=== PATIENT | male | born 1950 | race Caucasian/White ===

== ENCOUNTER 2018-08-07 21:01 | Emergency (ER) | payer MEDICARE, BC ==
[~2018-08-07] VITALS: Ht 175.3 cm; Wt 91.2 kg
[2018-08-08] MEDS ORDERED: LIDOcaine 2% 10ml TOPICAL JELLY (Urojet) MM ONE (00:25)
[2018-08-08 00:53] VITALS: BP 131/65
== END 2018-08-08 01:00 | disposition home or self-care (01) ==
LOC: ER 21:01
DX: R33.9 Retention of urine, unspecified (principal)
CPT/HCPCS: 51702; 99284